=== PATIENT | female | born 1950 | race Caucasian/White ===

== ENCOUNTER 2017-07-04 08:00 | Outpatient (RCR) | payer MEDICARE, BC ==
[~2017-07-04 08:00] MED LIST: LEVOTHYROXINE100 MCG ORAL; LOSARTAN-HCTZ1 EACH ORAL; LOVASTATIN40 MG ORAL; NORCO 5-325 TA1 EACH ORAL; ZOLPIDEM TARTRA10 MG ORAL
== END 2017-07-18 | disposition home or self-care (01) ==
LOC: PTY 08:00
PROVIDERS: ATTEND Specialist
DX: M22.40 Chondromalacia patellae, unspecified knee (principal); M17.0 Bilateral primary osteoarthritis of knee
CPT/HCPCS: 97110; 97140; 97162; G8978; G8979

== ENCOUNTER 2017-07-25 07:30 | Outpatient (RCR) | payer MEDICARE, BC | END 2017-08-18 | disposition home or self-care (01) | LOC: PTY 07:30 | PROVIDERS: ATTEND Specialist | DX: M22.40 Chondromalacia patellae, unspecified knee (principal); M17.0 Bilateral primary osteoarthritis of knee ==

== ENCOUNTER 2017-08-22 07:50 | Outpatient (RCR) | payer MEDICARE, BC | END 2017-09-17 | disposition home or self-care (01) | LOC: PTY 07:50 | PROVIDERS: ATTEND Specialist | DX: M22.40 Chondromalacia patellae, unspecified knee (principal); M17.0 Bilateral primary osteoarthritis of knee | CPT/HCPCS: 97110; 97140; G8979; G8980 ==